=== PATIENT | male | born 1950 | race Caucasian/White ===

== ENCOUNTER 2021-03-14 02:50 | Outpatient (RCR) | payer MEDICARE, OTHER, SELFPAY ==
[2021-03-14 10:01] LABS: Abs Immature Grans 0.03 10^3/uL (0.0-0.06); Absolute Basophil Count 0.03 10^3/uL (0.0-0.2); Absolute Eosinophil Count 0.12 10^3/uL (0.0-0.7); Absolute Lymphocyte Count 0.73 10^3/uL (1.2-3.4); Absolute Monocyte Count 0.65 10^3/uL (0.1-0.8); Absolute Neutrophil Count 6.48 10^3/uL (1.2-6.7); Basophils % 0.4; Eosinophils % 1.5; HCT 28.7 % (40.0-50.0); HGB 8.7 g/dL (13.5-17.5); Immature Grans % 0.4; Lymphocytes % 9.1; MCH 30.6 pg (27.0-33.0); MCHC 30.3 % (32.0-36.0); MCV 101.1 fL (80-95); MPV 10.3 fL (8.0-11.0); Monocytes % 8.1; Neutrophils % 80.5; Nucleated RBC 0 %; Platelet Count 237 10^3/uL (130-400); RBC 2.84 10^6/uL (4.36-5.78); RDW 16.8 % (11.8-14.1); RDW-SD 62.9 fL; WBC 8.04 10^3/uL (4.4-10.8)
[2021-03-14 10:22] LABS: ALT 11 U/L (16-63); AST 26 U/L (15-37); Albumin 2.7 g/dL (3.4-5.0); Alkaline Phosphatase 846 U/L (46-116); Anion Gap 10.2 mmol/L (3-11); BUN 20 mg/dL (7-18); Bilirubin, Total 0.7 mg/dL (0.2-1.0); CO2 32.8 mmol/L (21.0-32.0); Calcium 9.5 mg/dL (8.5-10.1); Chloride 96 mmol/L (98-107); Estimated GFR 7.84 (mL/min/1.73m2); Glucose 159 mg/dL (74-106); Potassium 4.2 mmol/L (3.5-5.1); Sodium 139 mmol/L (136-145); TSH 0.62 uIU/mL (0.36-3.74); Total Protein 7.6 g/dL (6.4-8.2)
[2021-03-14] MEDS: Normal Saline Flush 10 ML SYR IVP (10:23)
[2021-03-14 10:37] LABS: Diff Comment Diff Reviewed
[2021-03-14 10:38] LABS: Hypochromasia 1+; Macrocytosis 1+; Microcytosis 1+
== END 2021-03-22 23:59 | disposition home or self-care (01) ==
LOC: INF 02:50
PROVIDERS: PCP Family Medicine; Visit Provider Internal Medicine
DX: Z79.899 Other long term (current) drug therapy (principal); C67.8 Malignant neoplasm of overlapping sites of bladder; Z45.2 Encounter for adjustment and management of vascular access device
CPT/HCPCS: 36591; 80053; 84439; 84443; 85025

== ENCOUNTER 2021-04-04 02:54 | Outpatient (RCR) | payer MEDICARE, OTHER, SELFPAY ==
[2021-03-28] MEDS: Normal Saline Flush 10 ML SYR IVP (12:52)
[2021-03-28 13:00] LABS: Abs Immature Grans 0.06 10^3/uL (0.0-0.06); Absolute Basophil Count 0.03 10^3/uL (0.0-0.2); Absolute Eosinophil Count 0.13 10^3/uL (0.0-0.7); Absolute Lymphocyte Count 0.58 10^3/uL (1.2-3.4); Absolute Monocyte Count 0.65 10^3/uL (0.1-0.8); Basophils % 0.4; Eosinophils % 1.9; HCT 28.6 % (40.0-50.0); HGB 8.4 g/dL (13.5-17.5); Immature Grans % 0.9; Lymphocytes % 8.5; MCH 29.1 pg (27.0-33.0); MCHC 29.4 % (32.0-36.0); MPV 10.3 fL (8.0-11.0); Monocytes % 9.5; Neutrophils % 78.8; Nucleated RBC 0 %; Platelet Count 248 10^3/uL (130-400); RBC 2.89 10^6/uL (4.36-5.78); RDW 17.9 % (11.8-14.1); RDW-SD 65.9 fL; WBC 6.85 10^3/uL (4.4-10.8)
[2021-03-28 13:21] LABS: ALT 16 U/L (16-63); AST 28 U/L (15-37); Albumin 2.3 g/dL (3.4-5.0); Anion Gap 9.3 mmol/L (3-11); BUN 22 mg/dL (7-18); Bilirubin, Total 0.8 mg/dL (0.2-1.0); CO2 32.7 mmol/L (21.0-32.0); Calcium 9.1 mg/dL (8.5-10.1); Chloride 99 mmol/L (98-107); Estimated GFR 9.37 (mL/min/1.73m2); FREE T4 1.01 ng/dL (0.76-1.46); Glucose 149 mg/dL (74-106); Potassium 4.4 mmol/L (3.5-5.1); Sodium 141 mmol/L (136-145); TSH 1.27 uIU/mL (0.36-3.74); Total Protein 7.1 g/dL (6.4-8.2)
[2021-03-28 13:25] LABS: Alkaline Phosphatase 1482 U/L (46-116)
== END 2021-04-22 23:59 | disposition home or self-care (01) ==
LOC: INF 02:54
PROVIDERS: PCP Family Medicine; Visit Provider Internal Medicine
DX: C67.8 Malignant neoplasm of overlapping sites of bladder (principal); Z79.899 Other long term (current) drug therapy; Z45.2 Encounter for adjustment and management of vascular access device
CPT/HCPCS: 36591; 80053; 84439; 84443; 85025